=== PATIENT | male | born 1980 | race African-American/Black ===

== ENCOUNTER 2020-12-13 20:13 | Emergency (ER) | payer BC, SELFPAY ==
[2020-12-13 21:44] LABS: #Eosinphils 0.1 10x3/uL (0.0-0.5); #Monocytes 1.1 10x3/uL (0.0-1.1); %Basophils 0.3 % (0.0-2.0); %Eosinophils 0.7 % (0.0-6.0); %Lymphocytes 16.5 % (18.0-47.0); %Monocytes 10.9 % (0.0-10.0); %Neutrophils 71.3 % (40.0-75.0); Hemoglobin 14.2 g/dL (13.5-17.5); Mean Corpuscular HGB CONC 32.3 g/dL (32.0-36.0); Mean Corpuscular Hemoglobin 27.8 pg (27.0-33.0); Mean Corpuscular Volume 85.9 fl (81.2-95.1); Mean Platelet Volume 10.2 fl (7.4-10.4); Platelet Count 226 10x3/uL (150-450); RBC Distribution Width 12.9 % (11.5-14.5); Red Blood Cell (RBC) Count 5.11 10x6/uL (4.32-5.72); White Blood Cell (WBC) Count 9.8 10x3/uL (3.5-10.5)
[2020-12-13 21:55] LABS: ALT (SGPT) 81 U/L (8-55); AST (SGOT) 68 U/L (5-34); Albumin 4.5 g/dL (3.5-5.0); Alkaline Phosphatase 113 U/L (40-110); Anion Gap 14 mmol/L (10-20); BUN (Urea Nitrogen) 12 mg/dL (8.9-20.6); Bilirubin, Total 1.1 mg/dL (0.2-1.2); Calc. Creatinine Clearance 0 mL/min (70-130); Calcium 10.2 mg/dL (7.8-10.44); Carbon Dioxide 24 mmol/L (22-29); Chloride 106 mmol/L (98-107); Globulin 3.9 g/dL (2.4-3.5); Glucose 133 mg/dL (70-105); Lipase 27 U/L (8-78); Potassium 4.1 mmol/L (3.5-5.1); Protein, Total 8.4 g/dL (6.0-8.3); Sodium 140 mmol/L (136-145)
== END 2020-12-13 22:57 | disposition home or self-care (01) ==
LOC: CSHERS 20:13
DX: S29.012A Strain of muscle and tendon of back wall of thorax, initial encounter (principal); X58.XXXA Exposure to other specified factors, initial encounter
CPT/HCPCS: 36415; 71045; 80053; 83690; 85025

== ENCOUNTER 2021-05-29 13:26 | Inpatient (IN) | payer OTHER, SELFPAY ==
[2021-05-29 14:22] LABS: #Eosinphils 0.1 10x3/uL (0.0-0.5); #Monocytes 0.8 10x3/uL (0.0-1.1); #Neutrophils 4.9 10x3/uL (1.5-8.4); %Basophils 0.3 % (0.0-2.0); %Eosinophils 1.2 % (0.0-6.0); %Lymphocytes 18.3 % (18.0-47.0); %Monocytes 11.6 % (0.0-10.0); %Neutrophils 67.9 % (40.0-75.0); Hemoglobin 14.6 g/dL (13.5-17.5); Mean Corpuscular HGB CONC 31.8 g/dL (32.0-36.0); Mean Corpuscular Hemoglobin 26.1 pg (27.0-33.0); Mean Platelet Volume 9.7 fl (7.4-10.4); Platelet Count 229 10x3/uL (150-450); RBC Distribution Width 13.8 % (11.5-14.5); White Blood Cell (WBC) Count 7.3 10x3/uL (3.5-10.5)
[2021-05-29 14:43] LABS: ALT (SGPT) 31 U/L (8-55); AST (SGOT) 37 U/L (5-34); Albumin 4.8 g/dL (3.5-5.0); Alkaline Phosphatase 99 U/L (40-110); Anion Gap 18 mmol/L (10-20); BUN (Urea Nitrogen) 10 mg/dL (8.9-20.6); Bilirubin, Total 1.7 mg/dL (0.2-1.2); Calc. Creatinine Clearance 0 mL/min (70-130); Calcium 9.4 mg/dL (7.8-10.44); Carbon Dioxide 20 mmol/L (22-29); Chloride 104 mmol/L (98-107); Glucose 97 mg/dL (70-105); Potassium 3.7 mmol/L (3.5-5.1); Protein, Total 8.8 g/dL (6.0-8.3); Sodium 138 mmol/L (136-145)
[2021-05-29] MEDS ORDERED: Enoxaparin Sodium 30 MG/0.3 ML SYRINGE ONE (14:53)
[2021-05-29] MEDS ORDERED: Enoxaparin Sodium 100 MG/ML SYRINGE ONE (14:54)
[2021-05-29 15:11] LABS: INR-International Normal Ratio 1.2; PTT 25.6 sec (22.0-33.0); Prothrombin Time 12.8 sec (9.5-12.1)
[2021-05-29] MEDS ORDERED: Ondansetron ODT 4 MG TAB PO PRN (16:06)
[2021-05-29] MEDS ORDERED: Senokot S 8.6-50 MG TAB PO PRN (16:06)
[2021-05-29] MEDS ORDERED: Acetaminophen 325 MG TAB PO PRN (16:06)
[2021-05-29] MEDS ORDERED: Morphine 4 MG/ML VIAL ONE (16:51)
[2021-05-29] MEDS ORDERED: Ondansetron PF 4 MG/2 ML Vial ONE (16:51)
[2021-05-29 17:44] LABS: Troponin I Less than 0.010 ng/mL (< 0.028)
[2021-05-29 20:23] LABS: Troponin I Less than 0.010 ng/mL (< 0.028)
[2021-05-29 20:49] VITALS: BMI 34.9
[2021-05-29] MEDS ORDERED: Enoxaparin Sodium 120 MG/0.8 ML SYRINGE SC SCH (21:00)
[2021-05-29] MEDS: HYDROcodone/Acetaminophen 5/325 mg Tablet PO PRN (21:25)
[2021-05-30 04:30] LABS: Hemoglobin 12.7 g/dL (13.5-17.5); Mean Corpuscular HGB CONC 32.4 g/dL (32.0-36.0); Mean Corpuscular Hemoglobin 26.7 pg (27.0-33.0); Mean Corpuscular Volume 82.4 fl (81.2-95.1); Mean Platelet Volume 10.1 fl (7.4-10.4); Platelet Count 219 10x3/uL (150-450); RBC Distribution Width 13.9 % (11.5-14.5); Red Blood Cell (RBC) Count 4.76 10x6/uL (4.32-5.72); White Blood Cell (WBC) Count 5.9 10x3/uL (3.5-10.5)
[2021-05-30 04:46] LABS: Anion Gap 15 mmol/L (10-20); BUN (Urea Nitrogen) 10 mg/dL (8.9-20.6); Calc. Creatinine Clearance 187 mL/min (70-130); Calcium 8.4 mg/dL (7.8-10.44); Carbon Dioxide 21 mmol/L (22-29); Chloride 105 mmol/L (98-107); Glucose 101 mg/dL (70-105); Potassium 3.5 mmol/L (3.5-5.1); Sodium 137 mmol/L (136-145)
[2021-05-30 05:47] LABS: MDiff Complete? YES
[2021-05-30 05:54] LABS: Eosinophils 2 % (0-10); Lymphocytes 33 % (21-51); Monocytes 16 % (0-10); Neutrophil 46 % (42-75); Reactive Lymphocytes 3 % (0-10)
[2021-05-30] MEDS: HYDROcodone/Acetaminophen 5/325 mg Tablet PO PRN ×3 (07:59→16:34)
[2021-05-30] MEDS: Amlodipine 5 MG TAB PO SCH (08:15)
[2021-05-30] MEDS: Apixaban 5 MG TAB PO SCH ×2 (08:15→20:46)
[2021-05-30] MEDS ORDERED: FLU VACC QS2021-22(6MOS UP)/PF 60 MCG/0.5 ML SYRINGE IM ONE (09:00)
[2021-05-30 18:23] LABS: SARS-CoV-2 PCR by NAA Not Detected (NotDetected)
[2021-05-30] MEDS: HYDROcodone/Acetaminophen 10/325 mg Tablet PO PRN (20:45)
[2021-05-31 05:29] LABS: Anion Gap 13 mmol/L (10-20); BUN (Urea Nitrogen) 10 mg/dL (8.9-20.6); Calc. Creatinine Clearance 187 mL/min (70-130); Calcium 8.9 mg/dL (7.8-10.44); Carbon Dioxide 24 mmol/L (22-29); Chloride 103 mmol/L (98-107); Glucose 111 mg/dL (70-105); Potassium 3.9 mmol/L (3.5-5.1); Sodium 136 mmol/L (136-145)
[2021-05-31 05:46] LABS: Hemoglobin 13.4 g/dL (13.5-17.5); Mean Corpuscular HGB CONC 32.8 g/dL (32.0-36.0); Mean Corpuscular Hemoglobin 26.6 pg (27.0-33.0); Mean Corpuscular Volume 81.1 fl (81.2-95.1); Mean Platelet Volume 9.5 fl (7.4-10.4); Platelet Count 243 10x3/uL (150-450); RBC Distribution Width 14.1 % (11.5-14.5); Red Blood Cell (RBC) Count 5.03 10x6/uL (4.32-5.72); White Blood Cell (WBC) Count 5.4 10x3/uL (3.5-10.5)
[2021-05-31] MEDS: HYDROcodone/Acetaminophen 10/325 mg Tablet PO PRN ×2 (06:17→10:08)
[2021-05-31 07:07] LABS: MDiff Complete? YES
[2021-05-31 07:41] LABS: Eosinophils 3 % (0-10); Lymphocytes 27 % (21-51); Monocytes 13 % (0-10); Neutrophil 56 % (42-75)
[2021-05-31 07:42] LABS: Platelet Morphology Comment Appears Adequate; RBC Morphology Normal
[2021-05-31 07:54] VITALS: BP 138/79; TEMP 98.9
[2021-05-31] MEDS: Apixaban 5 MG TAB PO SCH (08:57)
[2021-05-31] MEDS: Amlodipine 5 MG TAB PO SCH (08:57)
== END 2021-05-31 17:59 | disposition home or self-care (01) | DRG 299 ==
LOC: CSHERS 13:26 → CSHTELE 17:33 → OBSVTOIN 05-30 15:22
PROVIDERS: ADMIT Family Medicine; ATTEND Nurse Practitioner Family
DX: I82.4Z2 Acute embolism and thrombosis of unspecified deep veins of left distal lower extremity (principal); I26.99 Other pulmonary embolism without acute cor pulmonale; I10 Essential (primary) hypertension; I82.412 Acute embolism and thrombosis of left femoral vein; I82.422 Acute embolism and thrombosis of left iliac vein; I82.452 Acute embolism and thrombosis of left peroneal vein; I82.432 Acute embolism and thrombosis of left popliteal vein; I82.442 Acute embolism and thrombosis of left tibial vein; I82.462 Acute embolism and thrombosis of left calf muscular vein; Z20.822 Contact with and (suspected) exposure to COVID-19
CPT/HCPCS: 36415; 71275; 80048; 80053; 84484; 85025; 85610; 85730; 93005; 93306; J1650; J2270; J2405; U0003; U0005

== ENCOUNTER 2022-05-08 14:54 | Emergency (ER) | payer OTHER, SELFPAY ==
[2022-05-08] MEDS ORDERED: Colchicine 0.6 MG TAB ONE (15:48)
== END 2022-05-08 16:12 | disposition home or self-care (01) ==
LOC: CSHERS 14:54
DX: M25.571 Pain in right ankle and joints of right foot (principal); Z86.718 Personal history of other venous thrombosis and embolism